=== PATIENT | male | born 1925 | race Caucasian/White ===

== ENCOUNTER 2016-10-31 14:39 | Observation (INO) | payer MEDICARE ==
[~2016-10-31] VITALS: Ht 188 cm; Wt 87.0 kg
[~2016-10-31 14:39] MED LIST: ACET500T3 PO; AFRI0.052 EACH NARE; CLAR10CA3 PO; DESIOIN3 TOPICAL; DEXT5LIQ12 PO; DONE10TA7 PO; ENAL2.5T PO; FLUT1SPR9 EACH NARE; KETO0.0210 EACH EYE; METO25TA6 PO; MILKSUS PO; MIRA33504 PO; MONT10TA2 PO; NAME10TA PO; PHEN60SU RECTAL; TUCKPAD5 TOPICAL; VITA10002 PO; WARF-60 PO
[2016-10-31 15:07] VITALS: BP 115/71; PULSE 108; RESP 18; TEMP 97.9; O2SAT 97
[2016-10-31] MEDS ORDERED: ACET-703 PO (15:26)
[2016-10-31] MEDS ORDERED: FURO1TAB60 PO (15:26)
[2016-10-31] MEDS ORDERED: HYDR-3533 PO (15:26)
[2016-10-31] MEDS ORDERED: SODIUM CHLORIDE 0.9% FLUSH 5 ML FLUSH IVF PRN (16:00)
--- NOTE | 2016-10-31 16:02 | PD ---
HPI Chief Complaint: Fall Time Seen by Provider: 15:54 Travel History International Travel<30 days: No Contact w/Intl Traveler<30days: No Traveled to known affect area: No History of Present Illness HPI 89-year-old male brought in from [facility] living, status post fall while using walker on October 27. Patient was taken to [facility] emergency department and evaluated. Patient was to follow-up with Dr. Suazo, the orthopedic surgeon on November 06. Patient was brought in as he is unable to get out of bed secondary to not being daily on the left leg. Patient is unable to fully extend the leg, is complaining of swelling and pain in the left knee. Patient has been bedridden since October 27. He is unable to go to the assisted living dining room for meals, and his son is concerned. He states that he can no longer clean or trouble with himself due to the pain. Patient had no head injury or neck pain. He had a full workup before hospital and knows records are now pending. 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 Surgeon at that time was Dr. Warner. Patient is sent in today as he is unable to ambulate and care for himself as necessary at his current assisted living status. Patient has a history of dementia and Alzheimer's, and does not recall falling. A lot of this information is obtained from his son who sent a letter with the patient. Patient has no known drug allergies. PFSH Past Medical History Alzheimer's Disease: Yes Arthritis: Yes (oa;kyphosis) Atrial Fibrillation: Yes Hypertension: Yes Influenza Vaccination: No (uto) Past Surgical History Surgical History: No Previous Surgery Social History Alcohol Use: No Tobacco Use: No Substance Use: No Allergies-Medications (Allergen,Severity, Reaction): Coded Allergies: No Known Allergies (Verified , 10/31/16) Reported Meds & Prescriptions Reported Meds & Active Scripts Active Acetaminophen 500 Mg Tab 1,000 Mg PO Q8HR PRN Tucks Medicated Topical (Witch Griselda Topical) 50 % Pad 1 Pad TOPICAL DAILY PRN use pad to cleanse rectal area after BM Preparation H Supp (Phenylephrine-[place] Butter Supp) 0.25-88.44 % Supp 1 Supp RECTAL BID PRN Afrin Nasal [place] (Oxymetazoline HCl) 0.05% [place] 2-3 [place] EACH NARE TID 2 sprays in each nostril three times daily for 3 days, then stop scheduled use Reported Tylenol Extra Strength (Acetaminophen) 500 Mg Tab 1,000 Mg PO Q8HR PRN Lortab (Hydrocodone-Acetaminophen) 5-325 Mg Tab 1 Tab PO Q6H PRN Warfarin 6 Mg Tab 12 Mg PO TUTH Warfarin 6 Mg Tab 6 Mg PO SASUMOWEFR Desitin Topical (Diaper Rash Products) 1 Application Oint 1 Applic TOPICAL DIRECTED PRN Milk of Magnesia Liq (Magnesium Hydroxide) 400 Mg/5 Ml Susp 30 Ml PO DAILY PRN Tussin Dm Max Adult Liq (Dextromethorphan-Guaifenesin Liq) 10-200 Mg/5 Ml Liq 10 Ml PO Q4H PRN Miralax Powder (Polyethylene Glycol 3350 Powder) 17 Gm Powd 17 Gm PO DAILY Mix and dissolve one measuring cap-ful (17 grams) in water or juice. Flonase Allergy Relief Children Nasal [place] (Fluticasone Nasal [place]) 50 Mcg/ Act [place] 1 [place] EACH NARE BID 50 mcg/spray Claritin (Loratadine) 10 Mg Cap 10 Mg PO DAILY Vitamin B-12 (Cyanocobalamin) 1,000 Mcg Tab 1,000 Mcg PO DAILY Namenda (Memantine) 10 Mg Tab 10 Mg PO BID Singulair (Montelukast Sodium) 10 Mg Tab 10 Mg PO HS Metoprolol Succinate ER 24 HR (Metoprolol Succinate) 25 Mg Tab 12.5 Mg PO DAILY Enalapril (Enalapril Maleate) 2.5 Mg Tab 2.5 Mg PO DAILY Donepezil 10 Mg Tab 10 Mg PO HS Review of Systems ROS Limitations: Poor Historian General / Constitutional: No: Fever Eyes: No: Visual changes HENT: No: Headaches Cardiovascular: No: Chest Pain or Discomfort Respiratory: No: Shortness of Breath Gastrointestinal: No: Abdominal Pain Genitourinary: No: Dysuria Musculoskeletal: No: Pain Skin: No Rash Neurologic: No: Weakness Psychiatric: No: Depression Endocrine: No: Polydipsia Hematologic/Lymphatic: No: Easy Bruising Physical Exam Narrative GENERAL: Patient is talkative and animated, in no acute distress. SKIN: Warm and dry. Normal color. Fairly good turgor. No open wounds or abrasions. HEAD: Atraumatic. Normocephalic. EYES: Pupils equal and round. No scleral icterus. No injection or drainage. ENT: No nasal bleeding or discharge. Mucous membranes pink and moist. NECK: Trachea midline. No JVD. CARDIOVASCULAR: Regular rate and rhythm. RESPIRATORY: No accessory muscle use. Clear to auscultation. Breath sounds equal bilaterally. GASTROINTESTINAL: Abdomen soft, non-tender, nondistended. Hepatic and splenic margins not palpable. MUSCULOSKELETAL: Extremities without clubbing, cyanosis, or edema. Patient has obvious effusion of the left knee with ecchymosis present. Patient is unable to extend or flex the knee due to pain in this joint. There is no obvious deformity, but is difficult to fully examine the knee due to patient's swelling and pain. NEUROLOGICAL: Awake and alert. No obvious cranial nerve deficits. Motor grossly within normal limits. Five out of 5 muscle strength in the arms and legs. Normal speech. Patient is noted to have similar questions over again. PSYCHIATRIC: Appropriate mood and affect; insight and judgment normal. Data Data Last Documented VS Vital Signs Date Time Temp Pulse Resp B/P Pulse Ox O2 Delivery O2 Flow Rate FiO2 10/31/16 15:07 97.9 108 18 115/71 97 Orders Complete Blood Count With Diff (10/31/16 15:47) Comprehensive Metabolic Panel (10/31/16 15:47) Sodium Chloride 0.9% Flush (Ns Flush) (10/31/16 16:00) Prothrombin Time / Inr (Pt) (10/31/16 15:47) Act Partial Throm Time (Ptt) (10/31/16 15:47) Iv Access Insert/Monitor (10/31/16 15:47) Ecg Monitoring (10/31/16 15:47) Oximetry (10/31/16 15:47) Knee, Complete (4vws) (10/31/16 15:47) Ice/Cold Pack (10/31/16 15:47) Labs Laboratory Tests Test 10/31/16 15:45 White Blood Count 7.9 TH/MM3 Red Blood Count 4.56 MIL/MM3 Hemoglobin 14.0 GM/DL Hematocrit 41.4 % Mean Corpuscular Volume 90.9 FL Mean Corpuscular Hemoglobin 30.8 PG Mean Corpuscular Hemoglobin 33.9 % Concent Red Cell Distribution Width 15.7 % Platelet Count 210 TH/MM3 Mean Platelet Volume 8.1 FL Neutrophils (%) (Auto) 71.6 % Lymphocytes (%) (Auto) 13.7 % Monocytes (%) (Auto) 14.1 % Eosinophils (%) (Auto) 0.2 % Basophils (%) (Auto) 0.4 % Neutrophils # (Auto) 5.7 TH/MM3 Lymphocytes # (Auto) 1.1 TH/MM3 Monocytes # (Auto) 1.1 TH/MM3 Eosinophils # (Auto) 0.0 TH/MM3 Basophils # (Auto) 0.0 TH/MM3 CBC Comment DIFF FINAL Differential Comment Prothrombin Time 37.9 SEC Prothromb Time International 3.3 RATIO Ratio Activated Partial 45.1 SEC Thromboplast Time Sodium Level 139 MEQ/L Potassium Level 4.2 MEQ/L Chloride Level 105 MEQ/L Carbon Dioxide Level 26.7 MEQ/L Anion Gap 7 MEQ/L Blood Urea Nitrogen 18 MG/DL Creatinine 0.66 MG/DL Estimat Glomerular Filtration 114 ML/MIN Rate Random Glucose 146 MG/DL Calcium Level 8.3 MG/DL Total Bilirubin 1.1 MG/DL Aspartate Amino Transf 28 U/L (AST/SGOT) Alanine Aminotransferase 23 U/L (ALT/SGPT) Alkaline Phosphatase 98 U/L Total Protein 6.1 GM/DL Albumin 2.4 GM/DL MDM Medical Decision Making Medical Screen Exam Complete: Yes Emergency Medical Condition: Yes Differential Diagnosis Fall. Left knee effusion. Inability to ambulate. Inability to care for self as necessary. Narrative Course Patient is felt to be medically stable at time of exam. Basic labs ordered including CBC, CMP, PT PTT and INR. X-ray of the left knee is obtained. X-rays show large effusion but no acute process per radiologist. Records from [facility] are attempted to be obtained. Call be placed for admission of the patient for OT/PT and orthopedic evaluation. Diagnosis Primary Impression: Fall Qualified Code: W19.XXXD - Fall, subsequent encounter Additional Impressions: Knee pain, left Qualified Code: M25.562 - Acute pain of left knee Unable to bear weight Unable to ambulate Alzheimer's dementia Qualified Code: G30.9 - Alzheimer's dementia without behavioral disturbance, unspecified timing of dementia onset Effusion, left knee Condition: Stable Rikki Ewing Oct 31, 2016 16:02
--- NOTE | 2016-10-31 16:11 | RADRPT ---
EXAM DATE/TIME: 10/31/2016 15:59 [place] COMPARISON: No previous studies available for comparison. INDICATIONS : Patient fell two weeks ago. Left knee pain. MEDICAL HISTORY : None. SURGICAL HISTORY : Left total knee arthroplasty. ENCOUNTER: Initial ACUITY: 1 day PAIN SCORE: 10/10 LOCATION: Left Knee FINDINGS: Total knee prosthesis in place well-seated. Bony structures are intact with no evidence of fracture, dislocation or loosening of the prosthesis. Soft tissues are negative. CONCLUSION: No acute abnormality Milad Presley MD on October 31, 2016 at 16:09 Board Certified Radiologist. This report was verified electronically.
[2016-10-31 16:15] LABS: AUTOMATED NEUTROPHIL # 5.7 TH/MM3 (1.8-7.7); BASOPHIL % 0.4 % (0.0-2.0); EOSINOPHIL % 0.2 % (0.0-4.0); HEMATOCRIT 41.4 % (39.0-51.0); HEMO FLAGS DIFF FINAL; LYMPH % 13.7 % (9.0-44.0); LYMPHOCYTE # 1.1 TH/MM3 (1.0-4.8); MEAN CELL VOLUME 90.9 FL (80.0-100.0); MEAN CORPUSCULAR HEMOGLOBIN 30.8 PG (27.0-34.0); MEAN CORPUSCULAR HGB CONC 33.9 % (32.0-36.0); MONO % 14.1 % (0.0-8.0); NEUT % 71.6 % (16.0-70.0); PLATELET COUNT 210 TH/MM3 (150-450); RED BLOOD COUNT 4.56 MIL/MM3 (4.50-5.90); RED CELL DISTRIBUTION WIDTH 15.7 % (11.6-17.2); WHITE BLOOD COUNT 7.9 TH/MM3 (4.0-11.0)
[2016-10-31 16:26] LABS: APTT (PATIENT) 45.1 SEC (24.3-30.1); INTERNATIONAL NORMALIZED RATIO 3.3 RATIO; PROTHROMBIN TIME - PATIENT 37.9 SEC (9.8-11.6)
[2016-10-31 16:34] LABS: ANION GAP 7 MEQ/L (5-15); AST (GOT) 28 U/L (15-37); BICARBONATE 26.7 MEQ/L (21.0-32.0); BLOOD UREA NITROGEN 18 MG/DL (7-18); CHLORIDE 105 MEQ/L (98-107); GLOMERULAR FILTRATION RATE 114 ML/MIN (>89); SODIUM (NA) 139 MEQ/L (136-145)
[2016-10-31 16:35] LABS: ALKALINE PHOSPHATASE 98 U/L (45-117); ALT (GPT) 23 U/L (12-78); TOTAL BILIRUBIN ADULT 1.1 MG/DL (0.2-1.0)
[2016-10-31 16:36] LABS: POTASSIUM 4.2 MEQ/L (3.5-5.1)
--- NOTE | 2016-10-31 17:15 | PD ---
Data Data Last Documented VS Vital Signs Date Time Temp Pulse Resp B/P Pulse Ox O2 Delivery O2 Flow Rate FiO2 10/31/16 15:07 97.9 108 18 115/71 97 Orders Complete Blood Count With Diff (10/31/16 15:47) Comprehensive Metabolic Panel (10/31/16 15:47) Sodium Chloride 0.9% Flush (Ns Flush) (10/31/16 16:00) Prothrombin Time / Inr (Pt) (10/31/16 15:47) Act Partial Throm Time (Ptt) (10/31/16 15:47) Iv Access Insert/Monitor (10/31/16 15:47) Ecg Monitoring (10/31/16 15:47) Oximetry (10/31/16 15:47) Knee, Complete (4vws) (10/31/16 15:47) Ice/Cold Pack (10/31/16 15:47) Admit Order (Ed Use Only) (10/31/16 16:51) Labs Laboratory Tests Test 10/31/16 15:45 White Blood Count 7.9 TH/MM3 Red Blood Count 4.56 MIL/MM3 Hemoglobin 14.0 GM/DL Hematocrit 41.4 % Mean Corpuscular Volume 90.9 FL Mean Corpuscular Hemoglobin 30.8 PG Mean Corpuscular Hemoglobin 33.9 % Concent Red Cell Distribution Width 15.7 % Platelet Count 210 TH/MM3 Mean Platelet Volume 8.1 FL Neutrophils (%) (Auto) 71.6 % Lymphocytes (%) (Auto) 13.7 % Monocytes (%) (Auto) 14.1 % Eosinophils (%) (Auto) 0.2 % Basophils (%) (Auto) 0.4 % Neutrophils # (Auto) 5.7 TH/MM3 Lymphocytes # (Auto) 1.1 TH/MM3 Monocytes # (Auto) 1.1 TH/MM3 Eosinophils # (Auto) 0.0 TH/MM3 Basophils # (Auto) 0.0 TH/MM3 CBC Comment DIFF FINAL Differential Comment Prothrombin Time 37.9 SEC Prothromb Time International 3.3 RATIO Ratio Activated Partial 45.1 SEC Thromboplast Time Sodium Level 139 MEQ/L Potassium Level 4.2 MEQ/L Chloride Level 105 MEQ/L Carbon Dioxide Level 26.7 MEQ/L Anion Gap 7 MEQ/L Blood Urea Nitrogen 18 MG/DL Creatinine 0.66 MG/DL Estimat Glomerular Filtration 114 ML/MIN Rate Random Glucose 146 MG/DL Calcium Level 8.3 MG/DL Total Bilirubin 1.1 MG/DL Aspartate Amino Transf 28 U/L (AST/SGOT) Alanine Aminotransferase 23 U/L (ALT/SGPT) Alkaline Phosphatase 98 U/L Total Protein 6.1 GM/DL Albumin 2.4 GM/DL MDM Supervised Visit with CHUCK: Yes Narrative Course I, Dr. Aponte, have reviewed the advance practice practioner's documentation and am in agreement, met with the patient face to face, made the diagnosis, and the medical decision making was done by me. *My assessment and Findings: 89-year-old male here with complaint of inability to ambulate after fall. Patient has been bedridden for the last 4 days. Unable to care for himself at his [facility]. Complains mostly of the left knee pain. Exam shows chronic osteoarthritic-appearing changes with a effusion of the left knee. Patient is unable to fully extend or flex the knee but good distal sensation and pulses. Differential includes fracture, osteoarthritis, failure to thrive, effusion. Patient's x-ray and laboratory workup unremarkable. Patient will be admitted for PT and potential placement. Diagnosis Primary Impression: Fall Qualified Code: W19.XXXD - Fall, subsequent encounter Additional Impressions: Alzheimer's dementia Effusion, left knee Unable to bear weight Knee pain, left Qualified Code: M25.562 - Acute pain of left knee Unable to ambulate Condition: Stable Sharon Aponte MD Oct 31, 2016 17:14
[2016-10-31] MEDS ORDERED: NALOXONE HCL 0.4 MG/ML AMP IV PRN (17:30)
[2016-10-31] MEDS ORDERED: SODIUM CHLORIDE 0.9% FLUSH 5 ML FLUSH FLUSH PRN (17:30)
--- NOTE | 2016-10-31 17:56 | HHI.HP ---
HPI Service [facility] Hospitalists Primary Care Physician Unknown Admission Diagnosis Left knee pain/ Unable to ambulate/Alzheimers Diagnoses: Travel History International Travel<30 Days: No Contact w/Intl Traveler <30 Da: No Traveled to Known Affected Are: No History of Present Illness 89-year-old male with a history of Alzheimer's disease, atrial fibrillation on warfarin, who initially suffered a fall on Thursday with presentation to [facility] for swelling in the left knee. He was sent home to [facility], however has not been able to walk due to swelling in the left knee for the past week. His son has arranged for him to be sent to [facility]. He is unable to perform activities of daily living. He has been confused for the past week beyond baseline. He is receiving narcotic pain medication. Discussed with son over the phone, who is the primary source of medical history. Outside records requested and pending from [facility].. Patient is a very poor historian. He does report severe pain in the left knee. He denies any chest pain or shortness of breath. Denies headache. Denies any urinary issues. He has been urinating in an adult diaper for the past week because he cannot get up to use the restroom Review of Systems Other patient is a very poor historian. Denies or says he is not sure of anything except left knee pain Past Family Social History Past Medical History Alzheimer's Atrial fibrillation on warfarin Allergic rhinitis Hypertension Chronic hemorrhoids B12 deficiency Past Surgical History Hernia surgery Left knee replacement in 2007 2009 armpit surgery Reported Medications Reported Meds & Active Scripts Active Acetaminophen 500 Mg Tab 1,000 Mg PO Q8HR PRN Tucks Medicated Topical (Witch Griselda Topical) 50 % Pad 1 Pad TOPICAL DAILY PRN use pad to cleanse rectal area after BM Preparation H Supp (Phenylephrine-[place] Butter Supp) 0.25-88.44 % Supp 1 Supp RECTAL BID PRN Afrin Nasal [place] (Oxymetazoline HCl) 0.05% [place] 2-3 [place] EACH NARE TID 2 sprays in each nostril three times daily for 3 days, then stop scheduled use Reported Tylenol Extra Strength (Acetaminophen) 500 Mg Tab 1,000 Mg PO Q8HR PRN Lortab (Hydrocodone-Acetaminophen) 5-325 Mg Tab 1 Tab PO Q6H PRN Warfarin 6 Mg Tab 12 Mg PO TUTH Warfarin 6 Mg Tab 6 Mg PO SASUMOWEFR Desitin Topical (Diaper Rash Products) 1 Application Oint 1 Applic TOPICAL DIRECTED PRN Milk of Magnesia Liq (Magnesium Hydroxide) 400 Mg/5 Ml Susp 30 Ml PO DAILY PRN Tussin Dm Max Adult Liq (Dextromethorphan-Guaifenesin Liq) 10-200 Mg/5 Ml Liq 10 Ml PO Q4H PRN Miralax Powder (Polyethylene Glycol 3350 Powder) 17 Gm Powd 17 Gm PO DAILY Mix and dissolve one measuring cap-ful (17 grams) in water or juice. Flonase Allergy Relief Children Nasal [place] (Fluticasone Nasal [place]) 50 Mcg/ Act [place] 1 [place] EACH NARE BID 50 mcg/spray Claritin (Loratadine) 10 Mg Cap 10 Mg PO DAILY Vitamin B-12 (Cyanocobalamin) 1,000 Mcg Tab 1,000 Mcg PO DAILY Namenda (Memantine) 10 Mg Tab 10 Mg PO BID Singulair (Montelukast Sodium) 10 Mg Tab 10 Mg PO HS Metoprolol Succinate ER 24 HR (Metoprolol Succinate) 25 Mg Tab 12.5 Mg PO DAILY Enalapril (Enalapril Maleate) 2.5 Mg Tab 2.5 Mg PO DAILY Donepezil 10 Mg Tab 10 Mg PO HS Allergies: Coded Allergies: No Known Allergies (Verified , 10/31/16) Family History Family history noncontributory. Social History Quit smoking 25 years ago. Quit drinking 40 years ago. No illicit drugs Physical Exam Vital Signs Vital Signs Date Time Temp Pulse Resp B/P Pulse Ox O2 Delivery O2 Flow Rate FiO2 10/31/16 15:07 97.9 108 18 115/71 97 Physical Exam GENERAL: This is a well-nourished, well-developed patient.he does appear in pain. Patient oriented to place. Disoriented to date. SKIN: No rashes, ecchymoses or lesions. Cool and dry. HEAD: Atraumatic. Normocephalic. No temporal or scalp tenderness. EYES: Pupils equal round and reactive. Extraocular motions intact. No scleral icterus. No injection or drainage. ENT: Nose without bleeding, purulent drainage or septal hematoma. Throat without erythema, tonsillar hypertrophy or exudate. Uvula midline. Airway patent. NECK: Trachea midline. No JVD or lymphadenopathy. Supple, nontender, no meningeal signs. CARDIOVASCULAR: Regular rate and rhythm without murmurs, gallops, or rubs. RESPIRATORY: Clear to auscultation. Breath sounds equal bilaterally. No wheezes , rales, or rhonchi. GASTROINTESTINAL: Abdomen soft, non-tender, nondistended. No hepato-splenomegaly , or palpable masses. No guarding. MUSCULOSKELETAL: Extremities without clubbing, cyanosis, or edema. patient does have knee effusion with tenderness to palpation.old left knee replacement scar well-healed. He does have small subcentimeter laceration over right elbow which does not appear infected. NEUROLOGICAL: Awake and alert. Cranial nerves II through XII intact. Motor and sensory grossly within normal limits. 5 out of 5 strength in bilateral arms. 5 out of 5 strength in bilateral hip flexors, however patient unable to extend lower leg without extreme pain. Peripheral perfusion intact. Normal speech. Laboratory Laboratory Tests Test 10/31/16 15:45 White Blood Count 7.9 Red Blood Count 4.56 Hemoglobin 14.0 Hematocrit 41.4 Mean Corpuscular Volume 90.9 Mean Corpuscular Hemoglobin 30.8 Mean Corpuscular Hemoglobin 33.9 Concent Red Cell Distribution Width 15.7 Platelet Count 210 Mean Platelet Volume 8.1 Neutrophils (%) (Auto) 71.6 Lymphocytes (%) (Auto) 13.7 Monocytes (%) (Auto) 14.1 Eosinophils (%) (Auto) 0.2 Basophils (%) (Auto) 0.4 Neutrophils # (Auto) 5.7 Lymphocytes # (Auto) 1.1 Monocytes # (Auto) 1.1 Eosinophils # (Auto) 0.0 Basophils # (Auto) 0.0 CBC Comment DIFF FINAL Differential Comment Prothrombin Time 37.9 Prothromb Time International 3.3 Ratio Activated Partial 45.1 Thromboplast Time Sodium Level 139 Potassium Level 4.2 Chloride Level 105 Carbon Dioxide Level 26.7 Anion Gap 7 Blood Urea Nitrogen 18 Creatinine 0.66 Estimat Glomerular Filtration 114 Rate Random Glucose 146 Calcium Level 8.3 Total Bilirubin 1.1 Aspartate Amino Transf 28 (AST/SGOT) Alanine Aminotransferase 23 (ALT/SGPT) Alkaline Phosphatase 98 Total Protein 6.1 Albumin 2.4 Result Diagram: 10/31/16 1545 10/31/16 1545 Assessment and Plan Assessment and Plan Left knee replacement 2007 Patient denies any other surgeries, however awaiting outside records //Suspected acute left knee hemarthrosis -hx of left knee replacement. Left knee x-ray personally reviewed, No acute findings. Supratherapeutic INR 3.3 on admission. -We'll hold anticoagulation for now. -We'll therapy, occupational therapy evaluation. Consult orthopedics. Ice packs. Avoid oversedation warm mind altering medications. //Atrial fibrillation. //Subtherapeutic INR. -Hold warfarin for now. Continue to monitor INR. Continue metoprolol. //Dementia //Now with acute delirium since Thursday -On focal on exam. -Delirium likely secondary to pain, pain meds. Patient is on anticholinergics. Will hold -Continue dementia medications. Avoid sedating medications. Chronic allergic rhinitis. Can continue Flonase. Chronic constipation. Continue MiraLAX daily. B12 deficiency. Chronic. Continue home B12. Code Status DO NOT RESUSCITATE. Discussed with son. Discussed Condition With patient, nurse, ED physician. Son over the phone Destin Smith MD Oct 31, 2016 17:56
[2016-10-31 18:16] VITALS: BP 139/78; PULSE 108; RESP 18; O2SAT 98
[2016-10-31] MEDS ORDERED: PILL SPLITTER OTHER PRN (18:30)
[2016-10-31] MEDS ORDERED: ACETAMINOPHEN 325 MG TAB PO PRN (19:15)
[2016-10-31 20:01] VITALS: BP 167/84; PULSE 99; RESP 20; TEMP 98; O2SAT 98
[2016-10-31] MEDS: MONTELUKAST SODIUM 10 MG TAB PO SCH (20:26)
[2016-10-31] MEDS: DONEPEZIL HCL 5 MG TAB PO SCH (20:29)
[2016-10-31] MEDS: SODIUM CHLORIDE 0.9% FLUSH 5 ML FLUSH FLUSH SCH (20:29)
[2016-10-31] MEDS: MEMANTINE HCL 10 MG TAB PO SCH (20:29)
[2016-10-31] MEDS: traMADol HCL 50 MG TAB PO PRN (20:29)
[2016-10-31] MEDS: FLUTICASONE PROPIONATE 50 MCG/ACT 16 GM NASAL SPRAY EACH NARE SCH (20:51)
[2016-11-01] VITALS (7 sets, daily range): BP systolic 125–165; BP diastolic 71–99; PULSE 78–112; RESP 18–20; TEMP 96.9–98; O2SAT 96–98
[2016-11-01] MEDS: traMADol HCL 50 MG TAB PO PRN ×4 (00:59→18:34)
[2016-11-01 06:50] LABS: AUTOMATED NEUTROPHIL # 5.4 TH/MM3 (1.8-7.7); BASOPHIL % 0.5 % (0.0-2.0); EOSINOPHIL % 0.3 % (0.0-4.0); HEMATOCRIT 41.1 % (39.0-51.0); HEMO FLAGS DIFF FINAL; LYMPH % 15.1 % (9.0-44.0); LYMPHOCYTE # 1.2 TH/MM3 (1.0-4.8); MEAN CELL VOLUME 91.5 FL (80.0-100.0); MEAN CORPUSCULAR HEMOGLOBIN 31.5 PG (27.0-34.0); MEAN CORPUSCULAR HGB CONC 34.5 % (32.0-36.0); MONO % 17.5 % (0.0-8.0); NEUT % 66.6 % (16.0-70.0); PLATELET COUNT 206 TH/MM3 (150-450); RED BLOOD COUNT 4.49 MIL/MM3 (4.50-5.90); RED CELL DISTRIBUTION WIDTH 15.6 % (11.6-17.2); WHITE BLOOD COUNT 8.2 TH/MM3 (4.0-11.0)
[2016-11-01 07:13] LABS: ALKALINE PHOSPHATASE 103 U/L (45-117); ALT (GPT) 21 U/L (12-78); ANION GAP 9 MEQ/L (5-15); AST (GOT) 19 U/L (15-37); BICARBONATE 26.8 MEQ/L (21.0-32.0); BLOOD UREA NITROGEN 18 MG/DL (7-18); CHLORIDE 101 MEQ/L (98-107); GLOMERULAR FILTRATION RATE 124 ML/MIN (>89); POTASSIUM 3.8 MEQ/L (3.5-5.1); SODIUM (NA) 137 MEQ/L (136-145); TOTAL BILIRUBIN ADULT 1.4 MG/DL (0.2-1.0)
[2016-11-01] MEDS: FLUTICASONE PROPIONATE 50 MCG/ACT 16 GM NASAL SPRAY EACH NARE SCH ×2 (08:26→20:56)
[2016-11-01] MEDS: POLYETHYLENE GLYCOL 17 GM PKG PO SCH (08:27)
[2016-11-01] MEDS: SODIUM CHLORIDE 0.9% FLUSH 5 ML FLUSH FLUSH SCH ×2 (08:27→20:56)
[2016-11-01] MEDS: CYANOCOBALAMIN 1,000 MCG TAB PO SCH (08:27)
[2016-11-01] MEDS: MEMANTINE HCL 10 MG TAB PO SCH ×2 (08:27→20:56)
[2016-11-01] MEDS: METOPROLOL SUCCINATE 25 MG EXTENDED RELEASE TAB PO SCH (08:27)
[2016-11-01] MEDS: ENALAPRIL MALEATE 2.5 MG TAB PO SCH (08:27)
--- NOTE | 2016-11-01 09:37 | PD.CONS ---
cc: Mike Troncoso Jr., MD HPI Service Orthopedic Surgeons Consult Requested By Primary Care Physician Unknown Admission Diagnosis Left knee pain/ Unable to ambulate/Alzheimers Diagnoses: Chief Complaint: left knee pain History of Present Illness 89-year-old male with pmhx Alzheimer's disease, atrial fibrillation on warfarin , s/p fall earlier this week. he was before hospital complaining of LEFT knee pain and was dischargged. He now returns to [place] with persistent LEFT knee pain with difficulty with weightbearing. He is a resident of an assisted living facility and has had difficulty with weightbearing and range of motion since the fall. He is unable to perform activity of daily living secondary to LEFT knee pain. He has been confused for the past week beyond baseline. patient is a very poor historian. He reports LEFT knee pain, exacerbated by range of motion, relieved at rest and a flexed position, associated with mild swelling, not associated with paresthesia and numbness, pain is sharp and nonradiating, localized at the posterior aspect of the knee. He denies any chest pain or shortness of breath. Denies headache. Denies any urinary issues. He has been urinating in an adult diaper for the past week because he cannot get up to use the restroom. Review of Systems patient is a very poor historian. Denies or says he is not sure of anything except left knee pain Past Family Social History Past Medical History Alzheimer's Atrial fibrillation on warfarin Allergic rhinitis Hypertension Chronic hemorrhoids B12 deficiency Past Surgical History Hernia surgery Left knee replacement in 2007 2009 armpit surgery Alllergies: NKDA Past Family Social History Past Medical History Alzheimer's Atrial fibrillation on warfarin Allergic rhinitis Hypertension Chronic hemorrhoids B12 deficiency Past Surgical History Hernia surgery Left knee replacement in 2007 2009 armpit surgery Allergies: Coded Allergies: No Known Allergies (Verified , 10/31/16) Active Ordered Medications Current Medications Medications (Trade) Dose Ordered Sig/Ingrid Route Start Time Stop Time Status Last Admin (NS Flush) 2 ml UNSCH PRN FLUSH 10/31/16 17:30 (NS Flush) 2 ml BID FLUSH 10/31/16 21:00 11/01/16 08:27 (Narcan Inj) 0.4 mg UNSCH PRN IV 10/31/16 17:30 (Vitamin B12) 1,000 mcg DAILY PO 11/01/16 09:00 11/01/16 08:27 (Aricept) 10 mg HS PO 10/31/16 21:00 10/31/16 20:29 (Vasotec) 2.5 mg DAILY PO 11/01/16 09:00 11/01/16 08:27 (Flonase [place] Spr) 1 spray BID EACH NARE 10/31/16 21:00 11/01/16 08:26 (Namenda) 10 mg BID PO 10/31/16 21:00 11/01/16 08:27 (Toprol Xl) 12.5 mg DAILY PO 11/01/16 09:00 11/01/16 08:27 (Singulair) 10 mg HS PO 10/31/16 21:00 10/31/16 20:26 (Miralax) 17 gm DAILY PO 11/01/16 09:00 11/01/16 08:27 (Pill Splitter) 1 ea UNSCH PRN OTHER 10/31/16 18:30 (Ultram) 50 mg Q4H PRN PO 10/31/16 19:15 11/01/16 09:25 (Tylenol) 650 mg Q4H PRN PO 10/31/16 19:15 Reported Meds & Active Scripts Active Acetaminophen 500 Mg Tab 1,000 Mg PO Q8HR PRN Tucks Medicated Topical (Witch Griselda Topical) 50 % Pad 1 Pad TOPICAL DAILY PRN use pad to cleanse rectal area after BM Preparation H Supp (Phenylephrine-Lovell Butter Supp) 0.25-88.44 % Supp 1 Supp RECTAL BID PRN Afrin Nasal [facility] [facility] (Oxymetazoline HCl) 0.05% [facility] [facility] 2-3 [facility] [employer] EACH NARE TID 2 sprays in each nostril three times daily for 3 days, then stop scheduled use Reported Tylenol Extra Strength (Acetaminophen) 500 Mg Tab 1,000 Mg PO Q8HR PRN Lortab (Hydrocodone-Acetaminophen) 5-325 Mg Tab 1 Tab PO Q6H PRN Warfarin 6 Mg Tab 12 Mg PO TUTH Warfarin 6 Mg Tab 6 Mg PO SASUMOWEFR Desitin Topical (Diaper Rash Products) 1 Application Oint 1 Applic TOPICAL DIRECTED PRN Milk of Magnesia Liq (Magnesium Hydroxide) 400 Mg/5 Ml Susp 30 Ml PO DAILY PRN Tussin Dm Max Adult Liq (Dextromethorphan-Guaifenesin Liq) 10-200 Mg/5 Ml Liq 10 Ml PO Q4H PRN Miralax Powder (Polyethylene Glycol 3350 Powder) 17 Gm Powd 17 Gm PO DAILY Mix and dissolve one measuring cap-ful (17 grams) in water or juice. Flonase Allergy Relief Children Nasal [employer] [employer] (Fluticasone Nasal [facility] [employer]) 50 Mcg/ Act [facility] 1 [place] [employer] EACH NARE BID 50 mcg/spray Claritin (Loratadine) 10 Mg Cap 10 Mg PO DAILY Vitamin B-12 (Cyanocobalamin) 1,000 Mcg Tab 1,000 Mcg PO DAILY Namenda (Memantine) 10 Mg Tab 10 Mg PO BID Singulair (Montelukast Sodium) 10 Mg Tab 10 Mg PO HS Metoprolol Succinate ER 24 HR (Metoprolol Succinate) 25 Mg Tab 12.5 Mg PO DAILY Enalapril (Enalapril Maleate) 2.5 Mg Tab 2.5 Mg PO DAILY Donepezil 10 Mg Tab 10 Mg PO HS Family History Family history noncontributory. Social History Quit smoking 25 years ago. Quit drinking 40 years ago. No illicit drugs Physical Exam Vital Signs Vital Signs Date Time Temp Pulse Resp B/P Pulse Ox O2 Delivery O2 Flow Rate FiO2 11/01/16 08:00 98.0 99 18 130/78 97 11/01/16 03:36 97.9 100 20 144/99 97 11/01/16 01:03 97.8 99 20 165/94 96 10/31/16 20:01 98.0 99 20 167/84 98 10/31/16 18:16 108 18 139/78 98 Room Air 10/31/16 15:07 97.9 108 18 115/71 97 Physical Exam altered mental status and Confused. head and neck. Normocephalic atrraumatic. Trachea is midline. Pulmonary: Normal respiratory efforts. No audible wheezing. Abdomen: Soft RIGHT lower extremity: grossly intact. Soft compartments. negative Homans sign. LLE: flexed at 100 deg, no warmth, no erythema, midline incision from previous TKA. ROM 45-100, painful terminal extension, no crepitus. nontender. 3/5 knee flexion/extension. SILT distally. soft compartments, negative homans Laboratory Laboratory Tests Test 10/31/16 11/01/16 15:45 05:30 White Blood Count 7.9 8.2 Red Blood Count 4.56 4.49 Hemoglobin 14.0 14.1 Hematocrit 41.4 41.1 Mean Corpuscular Volume 90.9 91.5 Mean Corpuscular Hemoglobin 30.8 31.5 Mean Corpuscular Hemoglobin 33.9 34.5 Concent Red Cell Distribution Width 15.7 15.6 Platelet Count 210 206 Mean Platelet Volume 8.1 8.6 Neutrophils (%) (Auto) 71.6 66.6 Lymphocytes (%) (Auto) 13.7 15.1 Monocytes (%) (Auto) 14.1 17.5 Eosinophils (%) (Auto) 0.2 0.3 Basophils (%) (Auto) 0.4 0.5 Neutrophils # (Auto) 5.7 5.4 Lymphocytes # (Auto) 1.1 1.2 Monocytes # (Auto) 1.1 1.4 Eosinophils # (Auto) 0.0 0.0 Basophils # (Auto) 0.0 0.0 CBC Comment DIFF FINAL DIFF FINAL Differential Comment Prothrombin Time 37.9 Prothromb Time International 3.3 Ratio Activated Partial 45.1 Thromboplast Time Sodium Level 139 137 Potassium Level 4.2 3.8 Chloride Level 105 101 Carbon Dioxide Level 26.7 26.8 Anion Gap 7 9 Blood Urea Nitrogen 18 18 Creatinine 0.66 0.61 Estimat Glomerular Filtration 114 124 Rate Random Glucose 146 108 Calcium Level 8.3 8.1 Total Bilirubin 1.1 1.4 Aspartate Amino Transf 28 19 (AST/SGOT) Alanine Aminotransferase 23 21 (ALT/SGPT) Alkaline Phosphatase 98 103 Total Protein 6.1 6.1 Albumin 2.4 2.4 Result Diagram: 11/01/16 0530 11/01/16 0530 Imaging Last 72 hours Impressions Hip and Pelvis X-Ray 11/01/16 0000 Signed Impressions: Service Date/Time: Tuesday, November 01, 2016 16:04 - CONCLUSION: No evidence of hip fracture. Adithya Disla MD Knee X-Ray 10/31/16 1547 Signed Impressions: Service Date/Time: Monday, October 31, 2016 15:59 - CONCLUSION: No acute abnormality Milad Presley MD Assessment & Plan Assessment and Plan 89-year-old male with pmhx Alzheimer's disease, atrial fibrillation on warfarin , s/p fall earlier this week complaining of LEFT knee pain. He's had a previous knee replacement by orthopaedic surgeon in [facility]. There is no evidence of septic arthritis. He has limited range of motion and some pain likely from a bony contusion since the fall. there is trace knee effusion. X- ray examination negative for fractures. I recommend physical therapy for range of motion and progressive weightbearing and balance training. Foollow-up with his orthopaedic surgeon is [facility]. Mike Troncoso Jr., MD Nov 01, 2016 09:37
[2016-11-01 10:34] LABS: INDIRECT BILIRUBIN 0.8 MG/DL (0.0-0.8); TOTAL BILIRUBIN ADULT 1.4 MG/DL (0.2-1.0)
[2016-11-01 11:27] LABS: PROTHROMBIN TIME - PATIENT 34.6 SEC (9.8-11.6)
--- NOTE | 2016-11-01 15:36 | HHI.PR ---
Subjective Remarks Patient seen today around noon. Patient says he feels better. Pain is still significant and left knee. Alertness is improved, however patient still uncertain of date. Says that family are arriving at 8 PM. This may be the case , as patient's sons cell phone is forwarded to [facility]. Patient does complain of some pain in the left hip. Objective Vital Signs Date Time Temp Pulse Resp B/P Pulse Ox O2 Delivery O2 Flow Rate FiO2 11/01/16 12:30 97.0 95 18 146/80 98 11/01/16 08:00 98.0 99 18 130/78 97 11/01/16 03:36 97.9 100 20 144/99 97 11/01/16 01:03 97.8 99 20 165/94 96 10/31/16 20:01 98.0 99 20 167/84 98 10/31/16 18:16 108 18 139/78 98 Room Air I/O 10/31/16 10/31/16 10/31/16 11/01/16 11/01/16 11/01/16 07:00 15:00 23:00 07:00 15:00 23:00 Output Total 75 ml Balance -75 ml Output Urine Total 75 ml # Voids 2 Result Diagram: 11/01/16 0530 11/01/16 0530 Objective Remarks GENERAL: Patient sitting up in bed. Appears comfortable. Patient is alert, oriented to place, not to date. SKIN: Warm and dry. HEAD: Normocephalic. EYES: No scleral icterus. No injection or drainage. NECK: Supple, trachea midline. No JVD. CARDIOVASCULAR: Regular rate and rhythm without murmurs, gallops, or rubs. RESPIRATORY: Breath sounds equal bilaterally. No accessory muscle use. GASTROINTESTINAL: Abdomen soft, non-tender, nondistended. MUSCULOSKELETAL: No cyanosis, or edema. Patient continues to have swelling in the left knee. No ecchymosis. Patient is not sure if there is tenderness with manipulation of the left hip. BACK: Nontender without obvious deformity. No CVA tenderness. A/P Assessment and Plan //Suspected acute left knee hemarthrosis -hx of left knee replacement. Left knee x-ray personally reviewed, No acute findings. Supratherapeutic INR 3.3 on admission. -Continue to hold anticoagulation for now. -Appreciate PT/OT Consult orthopedics. Ice packs. Avoid oversedation warm mind altering medications. //Atrial fibrillation. //Subtherapeutic INR. -Continue to Hold warfarin for now. Continue to monitor INR. Continue metoprolol. -Attended to call son at 3:30 PM. When the voicemail. We'll need to discuss the benefits and risk of continued and coagulation. //Dementia //Now with acute delirium since Thursday -On focal on exam. -Delirium likely secondary to pain, pain meds. Patient is on anticholinergics. Will hold -Continue dementia medications. Avoid sedating medications. -11/01. Mental status improved. Continue to monitor. //Chronic allergic rhinitis. Can continue Flonase. //Chronic constipation. Continue MiraLAX daily. //B12 deficiency. Chronic. Continue home B12. //Prophylaxis. Patient continues supratherapeutic on INR. Discharge Planning Consult case management for SNF placement. Physical therapy recommends rehabilitation. Destin Smith MD Nov 01, 2016 15:35
--- NOTE | 2016-11-01 16:49 | RADRPT ---
EXAM DATE/TIME: 11/01/2016 16:04 [facility] COMPARISON: No previous studies available for comparison. INDICATIONS : Left hip pain. MEDICAL HISTORY : None. SURGICAL HISTORY : Total knee replacement, left. ENCOUNTER: Initial ACUITY: 1 year PAIN SCORE: 9/10 LOCATION: Left lateral hip. FINDINGS: There is diffuse scattered areas of osteopenia. The bony pelvic ring is grossly intact. Coned-down views of the left hip are performed no evidence of fracture. The primary and secondary trabecular pa ttern are intact. There is mild sclerosis of the supra-acetabular region. No radiopaque foreign bod y seen. CONCLUSION: No evidence of hip fracture. Adithya Disla MD on November 01, 2016 at 16:47 Board Certified Radiologist. This report was verified electronically.
[2016-11-01] MEDS: MONTELUKAST SODIUM 10 MG TAB PO SCH (20:56)
[2016-11-01] MEDS: DONEPEZIL HCL 5 MG TAB PO SCH (20:56)
[2016-11-02 03:05] VITALS: BP 142/79; PULSE 110; RESP 18; TEMP 98.2; O2SAT 97
[2016-11-02] MEDS: traMADol HCL 50 MG TAB PO PRN ×3 (04:15→22:09)
[2016-11-02] MEDS: CYANOCOBALAMIN 1,000 MCG TAB PO SCH (08:10)
[2016-11-02] MEDS: MEMANTINE HCL 10 MG TAB PO SCH ×2 (08:10→22:10)
[2016-11-02] MEDS: METOPROLOL SUCCINATE 25 MG EXTENDED RELEASE TAB PO SCH (08:11)
[2016-11-02] MEDS: POLYETHYLENE GLYCOL 17 GM PKG PO SCH (08:11)
[2016-11-02] MEDS: ENALAPRIL MALEATE 2.5 MG TAB PO SCH (08:11)
[2016-11-02] MEDS: FLUTICASONE PROPIONATE 50 MCG/ACT 16 GM NASAL SPRAY EACH NARE SCH ×2 (08:11→22:10)
[2016-11-02] MEDS: SODIUM CHLORIDE 0.9% FLUSH 5 ML FLUSH FLUSH SCH ×2 (08:11→22:09)
[2016-11-02 08:26] VITALS: BP 114/79; PULSE 102; RESP 20; TEMP 97.9; O2SAT 98
[2016-11-02 11:48] VITALS: BP 124/67; PULSE 89; RESP 20; TEMP 97.9; O2SAT 94
[2016-11-02 15:11] VITALS: BP 143/75; PULSE 88; RESP 20; TEMP 98.3; O2SAT 94
[2016-11-02] MEDS: DONEPEZIL HCL 5 MG TAB PO SCH (22:10)
[2016-11-02] MEDS: MONTELUKAST SODIUM 10 MG TAB PO SCH (22:10)
[2016-11-02 23:10] VITALS: BP 147/78; PULSE 67; RESP 16; TEMP 97.8; O2SAT 97
[2016-11-03] MEDS: traMADol HCL 50 MG TAB PO PRN ×3 (03:06→17:02)
[2016-11-03 04:00] VITALS: BP 140/76; PULSE 67; RESP 18; TEMP 97.8; O2SAT 98
[2016-11-03 05:17] LABS: HEMATOCRIT 40.8 % (39.0-51.0); MEAN CELL VOLUME 91.1 FL (80.0-100.0); MEAN CORPUSCULAR HEMOGLOBIN 30.6 PG (27.0-34.0); MEAN CORPUSCULAR HGB CONC 33.6 % (32.0-36.0); PLATELET COUNT 283 TH/MM3 (150-450); RED BLOOD COUNT 4.48 MIL/MM3 (4.50-5.90); WHITE BLOOD COUNT 9.5 TH/MM3 (4.0-11.0)
[2016-11-03 05:26] LABS: HEMO FLAGS AUTO DIFF
[2016-11-03 05:42] LABS: BICARBONATE 30.8 MEQ/L (21.0-32.0); POTASSIUM 4.2 MEQ/L (3.5-5.1)
--- NOTE | 2016-11-03 05:42 | HHI.PR ---
Subjective Remarks Date of service 11/02/16. Late entry. Patient seen the morning of 11/02/16. - Patient says he is feeling a little better. Pain in left knee is slightly improved. Denies any chest pain or shortness of breath. Denies any nausea or vomiting.discussed with son in room. We will work on placement Patient has had several loose bowel movements. He has a history of hemorrhoids , and is on daily MiraLAX. This will be discontinued Objective Vital Signs Date Time Temp Pulse Resp B/P Pulse Ox O2 Delivery O2 Flow Rate FiO2 11/02/16 23:32 18 11/02/16 23:10 97.8 67 16 147/78 97 11/02/16 15:11 98.3 88 20 143/75 94 11/02/16 11:48 97.9 89 20 124/67 94 11/02/16 08:26 97.9 102 20 114/79 98 I/O 11/02/16 11/02/16 11/02/16 11/03/16 11/03/16 11/03/16 07:00 15:00 23:00 07:00 15:00 23:00 Intake Total 2 ml Balance 2 ml Intake IV Total 2 ml # Voids 2 3 1 # Bowel Movements 1 1 Result Diagram: 11/03/16 0420 11/01/16 0530 Objective Remarks GENERAL: Patient sitting up in bed. Appears comfortable. Patient is alert, oriented to place, not to date. SKIN: Warm and dry. HEAD: Normocephalic. EYES: No scleral icterus. No injection or drainage. NECK: Supple, trachea midline. No JVD. CARDIOVASCULAR: Regular rate and rhythm without murmurs, gallops, or rubs. RESPIRATORY: Breath sounds equal bilaterally. No accessory muscle use. GASTROINTESTINAL: Abdomen soft, non-tender, nondistended. MUSCULOSKELETAL: No cyanosis, or edema. swelling in the left knee appears to be improving. Effusion is decreasing. No ecchymosis. BACK: Nontender without obvious deformity. No CVA tenderness. A/P Assessment and Plan //Suspected acute left knee hemarthrosis -hx of left knee replacement. Left knee x-ray personally reviewed, No acute findings. Supratherapeutic INR 3.3 on admission. -Continue to hold anticoagulation for now. -Appreciate PT/OT appreciate orthopedic assistance. Continue tramadol and Tylenol as necessary for pain. //Atrial fibrillation. //Subtherapeutic INR. -Continue to Hold warfarin for now. Continue to monitor INR. Continue metoprolol. -11/01Attempted to call son at 3:30 PM. When the voicemail. We'll need to discuss the benefits and risk of continued and coagulation. -11/02. Discussed with son at bedside.we discussed the risks and benefits of being on anticoagulation. discussed 4% risk of stroke without treatment, 1.4% risk on warfarin. Son opts to discontinue warfarin at this time //Dementia //Now with acute delirium since Thursday -non focal on exam. -Delirium likely secondary to pain, pain meds. Patient is on anticholinergics. Will hold -Continue dementia medications. Avoid sedating medications. -11/01. Mental status improved. Continue to monitor. -11/02. Reportedly, patient did have episode of confusion prior to his son's arrival. We need to get patient placed. The hospitalist is not the right place for him. //Chronic allergic rhinitis. Can continue Flonase. //Chronic constipation. //now with diarrhea Clostridium difficile ordered and pending, however unlikely hold MiraLAX daily. //B12 deficiency. Chronic. Continue home B12. //Prophylaxis. Patient continues supratherapeutic on INR. Discharge Planning Consult case management for SNF placement. Physical therapy recommends rehabilitation. Destin Smith MD Nov 03, 2016 05:42
[2016-11-03 07:46] VITALS: BP 141/75; PULSE 92; RESP 20; TEMP 97.9; O2SAT 94
[2016-11-03 08:24] LABS: BANDS 2 % (0-6); EOSINOPHILS 2 % (0-4); NEUTROPHIL # MANUAL DIFF 6.9 TH/MM3 (1.8-7.7); POLYS (SEG NEUTROPHILS) 71 % (16-70); WBC DIFF SAMPLE 100
[2016-11-03 08:25] LABS: PLATELET ESTIMATE SMEAR NORMAL (NORMAL); PLATELET MORPHOLOGY NORMAL (NORMAL); SCAN/DIFF FINAL DIFF MANUAL
[2016-11-03 08:26] LABS: TARGET CELLS 1+ (NORMAL)
[2016-11-03] MEDS: METOPROLOL SUCCINATE 25 MG EXTENDED RELEASE TAB PO SCH (09:15)
[2016-11-03] MEDS: MEMANTINE HCL 10 MG TAB PO SCH (09:15)
[2016-11-03] MEDS: ENALAPRIL MALEATE 2.5 MG TAB PO SCH (09:15)
[2016-11-03] MEDS: CYANOCOBALAMIN 1,000 MCG TAB PO SCH (09:15)
[2016-11-03] MEDS: SODIUM CHLORIDE 0.9% FLUSH 5 ML FLUSH FLUSH SCH (09:17)
[2016-11-03] MEDS: FLUTICASONE PROPIONATE 50 MCG/ACT 16 GM NASAL SPRAY EACH NARE SCH (09:20)
[2016-11-03 11:39] VITALS: BP 103/62; PULSE 18; PULSE 72; RESP 20; TEMP 97.6; O2SAT 94
[2016-11-03] MEDS ORDERED: MIRA33504 PO (14:47)
[2016-11-03] MEDS ORDERED: ULTR50TA5 PO (14:47)
[2016-11-03 15:44] VITALS: BP 134/63; PULSE 86; RESP 20; TEMP 97.9; O2SAT 94
--- NOTE | 2016-11-03 16:14 | RADRPT ---
EXAM DATE/TIME: 11/03/2016 15:00 [facility] COMPARISON: No previous studies available for comparison. INDICATIONS : Increased lab values. MEDICAL HISTORY : Hypertension. Alzheimer's disease. atrial fibrillation. arthiritis. SURGICAL HISTORY : Hernia repair. Left knee replacement. Armpit surgery. ENCOUNTER: Initial ACUITY: 1 day PAIN SCORE: 0/10 LOCATION: Bilateral flank MEASUREMENTS: LIVER: 20.4 cm length COMMON DUCT: 5 mm RIGHT KIDNEY: 12.8 x 5.9 x 5.5 cm SPLEEN: 11.6 cm length FINDINGS: LIVER: Normal echotexture without focal lesion or ductal dilatation. Hepatomegaly of 20.4 cm vertical heigh t COMMON DUCT: No intraluminal mass or stone visualized. GALLBLADDER: Contains no stones, demonstrates no wall thickening or pericholecystic fluid. PANCREAS: The visualized portions are within normal limits. RIGHT KIDNEY: Mid pole 1.6 cm cyst and subcentimeter lower pole stone SPLEEN: No focal lesion. Borderline splenomegaly lung 0.6 cm vertical height CONCLUSION: Pattern megaly with borderline splenomegaly. Liver echogenicity is homogeneous and may represent fatt y metamorphosis. Milad Presley MD on November 03, 2016 at 16:10 Board Certified Radiologist. This report was verified electronically.
--- NOTE | 2016-11-03 18:15 | HHI.PR ---
Subjective Remarks patient seen this morning around 9 AM. He reports that left knee pain continues. Discussed with nursing. No acute issues. Patient denies any chest pain or shortness of breath. Objective Vital Signs Date Time Temp Pulse Resp B/P Pulse Ox O2 Delivery O2 Flow Rate FiO2 11/03/16 15:44 97.9 86 20 134/63 94 11/03/16 11:39 97.6 72 20 103/62 94 11/03/16 10:19 18 11/03/16 07:46 97.9 92 20 141/75 94 11/03/16 04:00 97.8 67 18 140/76 98 11/02/16 23:10 97.8 67 16 147/78 97 I/O 11/02/16 11/02/16 11/02/16 11/03/16 11/03/16 11/03/16 07:00 15:00 23:00 07:00 15:00 23:00 Intake Total 2 ml 350 ml Output Total 500 ml Balance 2 ml -150 ml Intake Oral 350 ml IV Total 2 ml Output Urine Total 500 ml # Voids 2 3 1 # Bowel Movements 1 1 0 Result Diagram: 11/03/16 0420 11/03/16 0420 Objective Remarks GENERAL: Patient sitting up in bed. Appears comfortable. Patient is alert, oriented to place, not to date. SKIN: Warm and dry. HEAD: Normocephalic. EYES: No scleral icterus. No injection or drainage. NECK: Supple, trachea midline. No JVD. CARDIOVASCULAR: Regular rate and rhythm without murmurs, gallops, or rubs. RESPIRATORY: Breath sounds equal bilaterally. No accessory muscle use. GASTROINTESTINAL: Abdomen soft, non-tender, nondistended. MUSCULOSKELETAL: No cyanosis, or edema. swelling in the left knee appears to be improving, slowly. Effusion is decreasing. No ecchymosis. BACK: Nontender without obvious deformity. No CVA tenderness. A/P Assessment and Plan //Suspected acute left knee hemarthrosis -hx of left knee replacement. Left knee x-ray personally reviewed, No acute findings. Supratherapeutic INR 3.3 on admission. -Continue to hold anticoagulation for now. -Appreciate PT/OT appreciate orthopedic assistance. Continue tramadol and Tylenol as necessary for pain. //Atrial fibrillation. //Subtherapeutic INR. -Continue to Hold warfarin for now. Continue to monitor INR. Continue metoprolol. -11/01Attempted to call son at 3:30 PM. When the voicemail. We'll need to discuss the benefits and risk of continued and coagulation. -11/02. Discussed with son at bedside.we discussed the risks and benefits of being on anticoagulation. discussed 4% risk of stroke without treatment, 1.4% risk on warfarin. Son opts to discontinue warfarin at this time -Continue to hold warfarin as per discussion with family. //Dementia //Now with acute delirium since Thursday -non focal on exam. -Delirium likely secondary to pain, pain meds. Patient is on anticholinergics. Will hold -Continue dementia medications. Avoid sedating medications. -11/01. Mental status improved. Continue to monitor. -11/02. Reportedly, patient did have episode of confusion prior to his son's arrival. We need to get patient placed. The hospital is not the right place for him. = Discharged to SNF. //Chronic allergic rhinitis. Can continue Flonase. //Chronic constipation. //now with diarrhea Stool noted to be soft, not diarrhea. Clostridium difficile extremely unlikely. This soft stool was likely secondary to MiraLAX. hold MiraLAX daily. //B12 deficiency. Chronic. Continue home B12. //Prophylaxis. Patient continues supratherapeutic on INR. Discharge Planning Consult case management for SNF placement. Physical therapy recommends rehabilitation. Discharge Planning discharged to SNF Destin Smith MD Nov 03, 2016 18:15
--- NOTE | 2016-11-03 18:32 | HHI.DS ---
Discharge Summary Admission Date Oct 31, 2016 at 16:53 Discharge Date: Nov 03, 2016 Admitting Diagnosis Left knee pain/ Unable to ambulate/Alzheimers (1) Knee pain, left ICD Code: M25.562 (2) Unable to ambulate ICD Code: R26.2 (3) Atrial fibrillation ICD Code: I48.91 (4) Alzheimer's dementia ICD Code: F02.80 Procedures no invasive procedures performed. Brief History - From Admission 89-year-old male with a history of Alzheimer's disease, atrial fibrillation on warfarin, who initially suffered a fall on Thursday with presentation to [facility] for swelling in the left knee. He was sent home to [facility], however has not been able to walk due to swelling in the left knee for the past week. His son has arranged for him to be sent to [facility]. He is unable to perform activities of daily living. He has been confused for the past week beyond baseline. He is receiving narcotic pain medication. Discussed with son over the phone, who is the primary source of medical history. Outside records requested and pending from [facility].. Patient is a very poor historian. He does report severe pain in the left knee. He denies any chest pain or shortness of breath. Denies headache. Denies any urinary issues. He has been urinating in an adult diaper for the past week because he cannot get up to use the restroom CBC/BMP: 11/03/16 0420 11/03/16 0420 Significant Findings Laboratory Tests Test 11/01/16 11/01/16 11/03/16 05:30 10:53 04:20 Red Blood Count 4.49 MIL/MM3 4.48 MIL/MM3 (4.50-5.90) (4.50-5.90) Monocytes (%) (Auto) 17.5 % (0.0-8.0) Monocytes # (Auto) 1.4 TH/MM3 (0-0.9) Random Glucose 108 MG/DL 107 MG/DL (74-106) (74-106) Calcium Level 8.1 MG/DL (8.5-10.1) Total Bilirubin 1.4 MG/DL (0.2-1.0) Direct Bilirubin 0.6 MG/DL (0.0-0.2) Total Protein 6.1 GM/DL (6.4-8.2) Albumin 2.4 GM/DL (3.4-5.0) Prothrombin Time 34.6 SEC (9.8-11.6) Neutrophils % (Manual) 71 % (16-70) Target Cells 1+ (NORMAL) Blood Urea Nitrogen 20 MG/DL (7-18) Imaging Last Impressions Liver Ultrasound 11/03/16 0000 Signed Impressions: Service Date/Time: Thursday, November 03, 2016 15:00 - CONCLUSION: Pattern megaly with borderline splenomegaly. Liver echogenicity is homogeneous and may represent fatty metamorphosis. Milad Presley MD Hip and Pelvis X-Ray 11/01/16 0000 Signed Impressions: Service Date/Time: Tuesday, November 01, 2016 16:04 - CONCLUSION: No evidence of hip fracture. Adithya Disla MD Knee X-Ray 10/31/16 1547 Signed Impressions: Service Date/Time: Monday, October 31, 2016 15:59 - CONCLUSION: No acute abnormality Milad Presley MD Hospital Course orthopedic was consulted. Conservative management with Tylenol, tramadol as necessary. Physical therapy and occupational therapy were consulted. patient was noted to have mild elevation in liver enzymes, mild elevation in bilirubin. Hepatitis profile was ordered. Ultrasound of liver showed enlarged liver with what appears to be steatohepatitis. He'll need to follow-up with primary care for further workup, if desired. //Suspected acute left knee hemarthrosis -hx of left knee replacement. Left knee x-ray personally reviewed, No acute findings. Supratherapeutic INR 3.3 on admission. -Continue to hold anticoagulation for now. -Appreciate PT/OT appreciate orthopedic assistance. Continue tramadol and Tylenol as necessary for pain. //Atrial fibrillation. //Subtherapeutic INR. -Continue to Hold warfarin for now. Continue to monitor INR. Continue metoprolol. -11/01Attempted to call son at 3:30 PM. When the voicemail. We'll need to discuss the benefits and risk of continued and coagulation. -11/02. Discussed with son at bedside.we discussed the risks and benefits of being on anticoagulation. discussed 4% risk of stroke without treatment, 1.4% risk on warfarin. Son opts to discontinue warfarin at this time -Continue to hold warfarin as per discussion with family. //Dementia //Now with acute delirium since Thursday -non focal on exam. -Delirium likely secondary to pain, pain meds. Patient is on anticholinergics. Will hold -Continue dementia medications. Avoid sedating medications. -11/01. Mental status improved. Continue to monitor. -11/02. Reportedly, patient did have episode of confusion prior to his son's arrival. We need to get patient placed. The hospital is not the right place for him. = Discharged to SNF. //Chronic allergic rhinitis. Can continue Flonase. //Chronic constipation. //now with diarrhea Stool noted to be soft, not diarrhea. Clostridium difficile extremely unlikely. This soft stool was likely secondary to MiraLAX. hold MiraLAX daily. //B12 deficiency. Chronic. Continue home B12. //Prophylaxis. Patient continues supratherapeutic on INR. Discharge Planning Consult case management for SNF placement. Physical therapy recommends rehabilitation. Pt Condition on Discharge: Good Discharge Disposition: Discharge to SNF Discharge Time: <= 30 minutes Discharge Instructions DIET: Follow Instructions for: Heart Healthy Diet Additional Diet Instructions: Encourage fluids Activities you can perform: Weight Bearing as Tana Follow up Referrals: Orthopedics - 1 Week PCP Follow-up - 2-3 Days New Medications: Tramadol (Ultram) 50 Mg Tab 50 MG PO Q6HR PRN BREAKTHROUGH PAIN #15 TAB Changed Medications: Polyethylene Glycol 3350 Powder (Miralax Powder) 17 Gm Powd 17 GM PO DAILY Mix and dissolve one measuring cap-ful (17 grams) in water or juice. PRN Constipation #1 Ref 0 BOTTLE (Medication details modified) Continued Medications: Acetaminophen (Acetaminophen) 500 Mg Tab 1000 MG PO Q8HR PRN PAIN SCALE 1 TO 10 #100 Ref 2 TAB Cyanocobalamin (Vitamin B-12) 1,000 Mcg Tab 1000 MCG PO DAILY Nutritional Supplement #1 Ref 0 BOTTLE Diaper Rash Products (Desitin Topical) 1 Application Oint 1 APPLIC TOPICAL DIRECTED PRN DIAPER RASH Ref 0 GM Donepezil (Donepezil) 10 Mg Tab 10 MG PO HS Dementia #30 Ref 0 TAB Enalapril (Enalapril) 2.5 Mg Tab 2.5 MG PO DAILY #30 Ref 0 TAB Fluticasone Nasal [place] (Flonase Allergy Relief Children Nasal [place]) 50 Mcg/ Act [place] 1 SPRAY EACH NARE BID 50 mcg/spray Allergy Management #1 Ref 0 BOTTLE Hydrocodone-Acetaminophen (Lortab) 5-325 Mg Tab 1 TAB PO Q6H PRN PAIN Ref 0 TAB Magnesium Hydroxide Liq (Milk of Magnesia Liq) 400 Mg/5 Ml Susp 30 ML PO DAILY PRN INDIGESTION OR UPSET STOMACH #1 Ref 0 BOTTLE Memantine (Namenda) 10 Mg Tab 10 MG PO BID Alzheimer Disease #30 Ref 0 TAB Metoprolol Succinate ER 24 HR (Metoprolol Succinate ER 24 HR) 25 Mg Tab 12.5 MG PO DAILY #30 Ref 0 TAB Montelukast (Singulair) 10 Mg Tab 10 MG PO HS #30 Ref 0 TAB Phenylephrine-[place] Butter Supp (Preparation H Supp) 0.25-88.44 % Supp 1 SUPP RECTAL BID PRN INFLAMMATION #12 Ref 3 SUPP Witch Griselda Topical (Tucks Medicated Topical) 50 % Pad 1 PAD TOPICAL DAILY use pad to cleanse rectal area after BM PRN PAIN/ INFLAMMATION #1 Ref 2 CONTAINER Discontinued Medications: Acetaminophen (Tylenol Extra Strength) 500 Mg Tab 1000 MG PO Q8HR PRN PAIN Ref 0 TAB Dextromethorphan-Guaifenesin Liq (Tussin Dm Max Adult Liq) 10-200 Mg/5 Ml Liq 10 ML PO Q4H PRN CHEST CONGESTION AND/OR COUGH #120 Ref 0 ML Loratadine (Claritin) 10 Mg Cap 10 MG PO DAILY Allergy Management Ref 0 CAP Oxymetazoline Nasal (Afrin Nasal [place]) 0.05% [place] 2-3 SPRAY EACH NARE TID 2 sprays in each nostril three times daily for 3 days, then stop scheduled use nasal congestion #1 Ref 0 BOTTLE Warfarin (Warfarin) 6 Mg Tab 6 MG PO [id number] Blood Clot Prevention #30 Ref 0 TAB Warfarin (Warfarin) 6 Mg Tab 12 MG PO TuTh Blood Clot Prevention #30 Ref 0 TAB Destin Smith MD Nov 03, 2016 18:32
[2016-11-05] MEDS ORDERED: TUCKPAD5 TOPICAL (09:34)
[2016-11-05] MEDS ORDERED: ENAL2.5T PO (09:34)
[2016-11-05] MEDS ORDERED: MIRA33504 PO (09:34)
[2016-11-05] MEDS ORDERED: NAME10TA PO (09:34)
[2016-11-05] MEDS ORDERED: MILKSUS PO (09:34)
[2016-11-05] MEDS ORDERED: METO25TA6 PO (09:34)
[2016-11-05] MEDS ORDERED: PHEN60SU RECTAL (09:34)
[2016-11-05] MEDS ORDERED: DONE10TA7 PO (09:34)
[2016-11-05] MEDS ORDERED: ULTR50TA5 PO (09:34)
[2016-11-05] MEDS ORDERED: MONT10TA2 PO (09:34)
[2016-11-05] MEDS ORDERED: FLUT1SPR9 EACH NARE (09:34)
[2016-11-05] MEDS ORDERED: ACET500T3 PO (09:34)
[2016-11-05] MEDS ORDERED: VITA10002 PO (09:34)
[2016-11-05] MEDS ORDERED: HYDR-3533 PO (10:31)
[2016-11-10] MEDS ORDERED: TEARSOL EACH EYE (11:27)
[2016-11-10] MEDS ORDERED: ULTR50TA5 PO (11:27)
[2016-11-14] MEDS ORDERED: HYDR-3533 PO (15:27)
[2016-11-14] MEDS ORDERED: ULTR50TA5 PO (15:27)
[2016-11-14] MEDS ORDERED: TYLE325T PO (15:27)
[2016-11-17] MEDS ORDERED: COUM6TAB PO ×2 (16:57)
[2016-12-11] MEDS ORDERED: MENT4GEL2 TOPICAL (13:41)
[2016-12-11] MEDS ORDERED: PRED10PA PO (13:41)
[2016-12-19] MEDS ORDERED: COUM6TAB PO (11:17)
[2016-12-30] MEDS ORDERED: ASPI1TAB69 PO (15:27)
[2016-12-30] MEDS ORDERED: IBUP-232 PO (15:27)
[2017-01-02] MEDS ORDERED: MIRA33504 PO (16:34)
[2017-01-06] MEDS ORDERED: IBUP-232 PO (14:38)
[2017-01-27] MEDS ORDERED: MIRA33504 PO (15:09)
[2017-01-27] MEDS ORDERED: DICL75TA PO (15:09)
[2017-02-10] MEDS ORDERED: LEVA500T PO (14:54)
[2017-02-12] MEDS ORDERED: LEVA500T PO (11:58)
[2017-02-27] MEDS ORDERED: DULC10SU3 RECTAL (11:26)
[2017-02-27] MEDS ORDERED: VANC1000P IV (11:31)
[2017-02-27] MEDS ORDERED: CEFT2INJ2 IV (11:31)
[2017-02-27] MEDS ORDERED: HYDR-3533 PO (13:13)
[2017-02-27] MEDS ORDERED: TRAM50TA PO (13:13)
[2017-02-27] MEDS ORDERED: PERI8.6T PO (15:02)
[2017-03-09] MEDS ORDERED: K-TA10TA PO (14:44)
[2017-03-28] MEDS ORDERED: DOXY1CAP74 PO (12:01)
[2017-03-28] MEDS ORDERED: APIX5TAB PO (12:04)
[2017-03-28] MEDS ORDERED: TRAZ50TA12 PO (12:04)
== END 2016-11-03 17:37 ==
LOC: NEDAMB 14:39 → NEDA 16:53 → NEPGCP 18:42
PROVIDERS: ADMIT Internal Medicine; ATTEND Internal Medicine
DX: M25.462 Effusion, left knee (principal); M25.562 Pain in left knee; W18.39XA Other fall on same level, initial encounter; G30.9 Alzheimer's disease, unspecified; F02.80 Dementia in other diseases classified elsewhere, unspecified severity, without behavioral disturbance, psychotic disturbance, mood disturbance, and anxiety; I48.91 Unspecified atrial fibrillation; I10 Essential (primary) hypertension; R79.1 Abnormal coagulation profile; K59.09 Other constipation; E53.8 Deficiency of other specified B group vitamins; Z96.652 Presence of left artificial knee joint; Z74.01 Bed confinement status; Z79.01 Long term (current) use of anticoagulants
CPT/HCPCS: 73501; 73564; 76705; 80048; 80053; 82247; 82248; 85007; 85025; 85027; 85610; 85730; 97110; 97163; 97167; 97530; 99285; G0378; G8987; G8988; 76937